=== PATIENT | male | born 1995 | race Two or more races ===

== ENCOUNTER 2017-07-19 20:31 | Emergency (ER) | payer SELFPAY ==
[~2017-07-19] VITALS: Ht 180.3 cm; Wt 122.5 kg
[2017-07-19] MEDS ORDERED: NIFEdipine 10 MG CAP ONE (21:09)
[2017-07-19] MEDS ORDERED: NIFEdipine 10 MG CAP PO ONE (21:30)
[2017-07-19 21:32] LABS: Basophils # (auto) 0.1 uL; Basophils % (auto) 0.8 % (0.0-2.0); Eosinophils # (auto) 0.4 uL; Eosinophils % (auto) 2.9 % (0.0-7.0); Hematocrit 32.9 % (41.0-53.0); Hemoglobin 11.2 g/dL (13.5-17.5); Lymphocytes # (auto) 2.1 uL; Mean Corpuscular Hemoglobin 29.9 pg (28.0-32.0); Mean Corpuscular Hgb Conc. 34.1 g/dL (32.0-36.0); Mean Corpuscular Volume 87.8 fL (80.0-100.0); Monocytes # (auto) 0.6 uL; Monocytes % (auto) 5.2 % (0.0-12.0); Neutrophils # (auto) 9.2 uL; Neutrophils % (auto) 74.1 % (37.0-80.0); Platelet Count (auto) 280 10^3/uL (140-450); Red Blood Cells 3.74 10^6/uL (4.5-5.90); Red Cell Distribution Width 13.4 % (11.8-14.3); White Blood Cell 12.4 10^3/uL (4.4-10.8)
[2017-07-19 21:49] LABS: Albumin 2.7 g/dL (3.4-5.0); BUN/Creatinine Ratio 10.7; Calcium 7.9 mg/dL (8.5-10.1); Potassium 4.2 mmol/L (3.5-5.1)
[2017-07-19 21:52] LABS: Bilirubin, Total 0.2 mg/dL (0.2-1.0); Total Protein 6.7 g/dL (6.4-8.2)
[2017-07-20 01:53] LABS: Urine Bacteria NONE SEEN /hpf (None Seen); Urine Blood 2+ /uL (Negative); Urine Specific Gravity 1.013 (1.001-1.035); Urine WBC 4 /hpf (0 - 3)
[2017-07-20 02:11] LABS: Alcohol, Urine < 3.0 mg/dL (0-5); Amphetamine Screen, Urine NEGATIVE (NEGATIVE); Barbiturate Scree,Urine NEGATIVE (NEGATIVE); Benzodiazephine Screen, Urine NEGATIVE (NEGATIVE); Cannabinoid Screen, Urine NEGATIVE (NEGATIVE); Cocaine Screen, Urine NEGATIVE (NEGATIVE); Opiate Scree,Urine NEGATIVE (NEGATIVE); Phencyclidine Screen, Urine NEGATIVE (NEGATIVE)
[2017-07-20 02:28] VITALS: BP 153/91
== END 2017-07-20 03:44 | disposition home or self-care (01) ==
LOC: ER 20:31
DX: H53.8 Other visual disturbances (principal)
CPT/HCPCS: 36415; 70450; 80053; 80307; 81001; 85025